=== PATIENT | male | born 1980 | race Caucasian/White ===

== ENCOUNTER 2022-04-27 23:58 | Emergency (ER) | payer BC, OTHER ==
[~2022-04-27] VITALS: Ht 175.3 cm; Wt 95.5 kg
[2022-04-28 00:52] VITALS: BP 151/111
[2022-04-28] MEDS ORDERED: TETanus/Pertussis (Acell)/Diphther VAC/PF (Tdap-Adult) 0.5ml syringe IMVAC ONE (01:15)
[2022-04-28] MEDS ORDERED: LIDOcaine 1% w/EPI 1:100,000 30ml vial (MDV) IJ ONE (01:15)
[2022-04-28] MEDS ORDERED: sulfamethoxazole/trimethoprim DS (800/160mg) tablet PO ONE (02:20)
[2022-04-28] MEDS ORDERED: SULF1TAB49 PO (02:32)
== END 2022-04-28 01:09 | disposition left against medical advice (07) ==
LOC: ER 23:59
DX: S01.81XA Laceration without foreign body of other part of head, initial encounter (principal); F17.200 Nicotine dependence, unspecified, uncomplicated; Z72.89 Other problems related to lifestyle; Z98.890 Other specified postprocedural states; Z79.2 Long term (current) use of antibiotics; V89.2XXA Person injured in unspecified motor-vehicle accident, traffic, initial encounter; Y93.89 Activity, other specified; Y92.89 Other specified places as the place of occurrence of the external cause; Y99.8 Other external cause status
CPT/HCPCS: 12004; 12015; 90471; 90715; 99284; A6449